=== PATIENT | female | born 1970 | race Caucasian/White ===

== ENCOUNTER 2018-01-03 14:51 | Emergency (ER) | payer SELFPAY, MEDICAID | END 2018-01-03 17:44 | disposition left against medical advice (07) | LOC: M ED 14:51 | DX: K13.79 Other lesions of oral mucosa (principal); Z53.21 Procedure and treatment not carried out due to patient leaving prior to being seen by health care provider ==

== ENCOUNTER 2018-09-25 17:28 | Inpatient (IN) | payer OTHER, SELFPAY ==
[2018-09-25] MEDS: MORPHINE 2 MG/ML 1ML SYRINGE (J2270) IV (18:45)
[2018-09-25] MEDS: PIPERACILLIN/TAZOBACTAM SOD 3.375 GM in D5W MINI-BAG PLUS 50 ML IV (20:10)
[2018-09-25 20:34] LABS: BASO # 0.1 10^3/uL (0.0-0.2); BASO % 0.4 % (0.0-1.0); EOS # 0.2 10^3/uL (0.0-0.50); EOS % 0.8 % (0.0-3.0); HEMATOCRIT 43.3 % (36.0-47.0); IMMATURE GRANULOCYTE % 0.8 % (0-3.0); LYMPH # 1.8 10^3/uL (1.5-4.5); LYMPH % 9.3 % (24.0-44.0); MEAN CORPUSCULAR HEMOGLOBIN 30.2 pg (27.0-33.0); MEAN CORPUSCULAR HGB CONC 32.3 g/dl (32.0-36.5); MEAN CORPUSCULAR VOLUME 93.3 fl (80.0-96.0); MONO # 1.6 10^3/uL (0.0-0.8); MONO % 8.3 % (0.0-5.0); NEUTROPHILS # 15.6 10^3/uL (1.8-7.7); NEUTROPHILS % 80.4 % (36.0-66.0); PLATELET COUNT, AUTOMATED 339 10^3/uL (150-450); RED BLOOD COUNT 4.64 10^6/uL (4.00-5.40); RED CELL DISTRIBUTION WIDTH 13.2 % (11.5-14.5); WHITE BLOOD COUNT 19.4 10^3/uL (4.0-10.0)
[2018-09-25 20:52] LABS: ERYTHROCYTE SEDIMENTATION RATE 39 mm/hr (0-20)
[2018-09-25 20:54] LABS: ANION GAP 8 MEQ/L (8-16); BLOOD UREA NITROGEN 13 MG/DL (7-18); C REACTIVE PROTEIN QUANTITATIV 8.94 MG/DL (0.00-0.30); CALCIUM LEVEL 8.7 MG/DL (8.5-10.1); CARBON DIOXIDE LEVEL 28 MEQ/L (21-32); CHLORIDE LEVEL 99 MEQ/L (98-107); CREATININE FOR GFR 0.64 MG/DL (0.55-1.30); GLOMERULAR FILTRATION RATE > 60.0 (>58); GLUCOSE, FASTING 75 MG/DL (70-100); POTASSIUM SERUM 3.9 MEQ/L (3.5-5.1); SODIUM LEVEL 135 MEQ/L (136-145)
[2018-09-25] MEDS: VANCOMYCIN HCL 1,000 MG, VIAL MATE ADAPTER 1 EACH in D5W 250 ML IV (22:03)
[2018-09-25] MEDS ORDERED: ISOVUE-370 76% 100ML VIAL (Q9967) As Ordered (22:22)
[2018-09-26] MEDS: PERCOCET 5MG/325MG TAB PO ×5 (00:44→22:09)
[2018-09-26] MEDS: VANCOMYCIN HCL 1,000 MG, VIAL MATE ADAPTER 1 EACH in D5W 250 ML IV ×2 (02:26→10:26)
[2018-09-26] MEDS: PIPERACILLIN/TAZOBACTAM SOD 3.375 GM in D5W MINI-BAG PLUS 50 ML IV ×2 (03:20→12:09)
[2018-09-26] MEDS: ACETAMINOPHEN TAB 650MG DOSE (2X325MG) PO (03:27)
[2018-09-26] MEDS: ENOXAPARIN 40 MG/0.4 ML SYRINGE (J1650) SC (09:00)
[2018-09-26 09:09] LABS: AMPHETAMINES LEVEL URINE NEGATIVE (NEGATIVE); BARBITURATES URINE NEGATIVE (NEGATIVE); BENZODIAZEPINES URINE NEGATIVE (NEGATIVE); CANNABINOIDS URINE NEGATIVE (NEGATIVE); COCAINE METABOLITE URINE NEGATIVE (NEGATIVE); METHADONE URINE NEGATIVE (NEGATIVE); OPIATES URINE POSITIVE (NEGATIVE); PHENCYCLIDINE URINE NEGATIVE (NEGATIVE)
[2018-09-26] MEDS: NS 1,000 ML IV ×2 (10:26→17:58)
[2018-09-26 14:15] LABS: BASO # 0.1 10^3/uL (0.0-0.2); BASO % 0.5 % (0.0-1.0); EOS # 0.5 10^3/uL (0.0-0.50); EOS % 3.7 % (0.0-3.0); HEMATOCRIT 37.7 % (36.0-47.0); HEMOGLOBIN 12.5 g/dl (12.0-15.5); IMMATURE GRANULOCYTE % 0.4 % (0-3.0); LYMPH # 1.5 10^3/uL (1.5-4.5); LYMPH % 10.5 % (24.0-44.0); MEAN CORPUSCULAR HEMOGLOBIN 30.3 pg (27.0-33.0); MEAN CORPUSCULAR HGB CONC 33.2 g/dl (32.0-36.5); MEAN CORPUSCULAR VOLUME 91.5 fl (80.0-96.0); MONO # 1.2 10^3/uL (0.0-0.8); MONO % 8.5 % (0.0-5.0); NEUTROPHILS # 10.7 10^3/uL (1.8-7.7); NEUTROPHILS % 76.4 % (36.0-66.0); PLATELET COUNT, AUTOMATED 324 10^3/uL (150-450); RED BLOOD COUNT 4.12 10^6/uL (4.00-5.40); RED CELL DISTRIBUTION WIDTH 13.2 % (11.5-14.5)
[2018-09-26 14:35] LABS: BLOOD UREA NITROGEN 8 MG/DL (7-18); CARBON DIOXIDE LEVEL 27 MEQ/L (21-32); CHLORIDE LEVEL 104 MEQ/L (98-107); CREATININE FOR GFR 0.64 MG/DL (0.55-1.30); GLOMERULAR FILTRATION RATE > 60.0 (>58); GLUCOSE, FASTING 167 MG/DL (70-100); POTASSIUM SERUM 3.5 MEQ/L (3.5-5.1); SODIUM LEVEL 138 MEQ/L (136-145)
[2018-09-26 14:36] LABS: ANION GAP 7 MEQ/L (8-16); CALCIUM LEVEL 8.2 MG/DL (8.5-10.1)
[2018-09-26 14:38] LABS: LACTIC ACID SEPSIS PROTOCOL 1.7 MMOL/L (0.4-2.0)
[2018-09-26] MEDS: CEFTAROLINE FOSAMIL 600 MG in D5W MINI-BAG PLUS 50 ML IV (17:58)
[2018-09-27] MEDS: PERCOCET 5MG/325MG TAB PO ×2 (02:54→07:18)
[2018-09-27 03:18] LABS: KETONE, URINE AUTO RFX NEGATIVE (NEGATIVE); LEUKOCYTE ESTERASE UR AUTO RFX NEGATIVE (NEGATIVE); MUCUS, URINE RFX SMALL (NEGATIVE); NITRITE, URINE AUTO RFX NEGATIVE (NEGATIVE); RBC, URINE AUTO RFX 7 /HPF (0-3); SQUAM EPITHELIAL CELL UR AURFX 1 /HPF (0-6); WBC, URINE AUTO RFX 7 /HPF (0-3)
[2018-09-27] MEDS: CEFTAROLINE FOSAMIL 600 MG in D5W MINI-BAG PLUS 50 ML IV (03:59)
[2018-09-27] MEDS: NS 1,000 ML IV (06:30)
[2018-09-27] MEDS: ENOXAPARIN 40 MG/0.4 ML SYRINGE (J1650) SC (09:00)
[2018-09-27 09:09] LABS: BASO # 0.1 10^3/uL (0.0-0.2); BASO % 0.7 % (0.0-1.0); EOS # 0.4 10^3/uL (0.0-0.50); EOS % 3.5 % (0.0-3.0); HEMATOCRIT 37.9 % (36.0-47.0); HEMOGLOBIN 12.3 g/dl (12.0-15.5); IMMATURE GRANULOCYTE % 0.5 % (0-3.0); LYMPH # 1.5 10^3/uL (1.5-4.5); LYMPH % 14.3 % (24.0-44.0); MEAN CORPUSCULAR HEMOGLOBIN 30.3 pg (27.0-33.0); MEAN CORPUSCULAR HGB CONC 32.5 g/dl (32.0-36.5); MEAN CORPUSCULAR VOLUME 93.3 fl (80.0-96.0); MONO # 0.7 10^3/uL (0.0-0.8); MONO % 6.5 % (0.0-5.0); NEUTROPHILS # 7.5 10^3/uL (1.8-7.7); NEUTROPHILS % 74.5 % (36.0-66.0); PLATELET COUNT, AUTOMATED 318 10^3/uL (150-450); RED BLOOD COUNT 4.06 10^6/uL (4.00-5.40); RED CELL DISTRIBUTION WIDTH 13.2 % (11.5-14.5); WHITE BLOOD COUNT 10.1 10^3/uL (4.0-10.0)
[2018-09-27 09:23] LABS: C REACTIVE PROTEIN QUANTITATIV 3.69 MG/DL (0.00-0.30)
[2018-09-27 09:28] LABS: ALBUMIN 2.4 GM/DL (3.2-5.2); ALBUMIN/GLOBULIN RATIO 0.67 (1.00-1.93); ALKALINE PHOSPHATASE 85 U/L (45-117); ALT/SGPT 115 U/L (12-78); ANION GAP 6 MEQ/L (8-16); AST/SGOT 89 U/L (7-37); BILIRUBIN,TOTAL 0.3 MG/DL (0.2-1.0); BLOOD UREA NITROGEN 8 MG/DL (7-18); CALCIUM LEVEL 8.1 MG/DL (8.5-10.1); CARBON DIOXIDE LEVEL 25 MEQ/L (21-32); CHLORIDE LEVEL 109 MEQ/L (98-107); CREATININE FOR GFR 0.44 MG/DL (0.55-1.30); GLOMERULAR FILTRATION RATE > 60.0 (>58); GLUCOSE, FASTING 99 MG/DL (70-100); MAGNESIUM LEVEL 1.9 MG/DL (1.8-2.4); POTASSIUM SERUM 3.9 MEQ/L (3.5-5.1); SODIUM LEVEL 140 MEQ/L (136-145)
== END 2018-09-27 11:55 | disposition home or self-care (01) | DRG 383 ==
LOC: M MS4PR 09-26 01:10 → M ED 17:28 → M ED INP 22:03
DX: L03.113 Cellulitis of right upper limb (principal); F17.210 Nicotine dependence, cigarettes, uncomplicated; Z88.2 Allergy status to sulfonamides

== ENCOUNTER 2018-09-30 20:19 | Emergency (ER) | payer OTHER ==
[2018-09-30] MEDS: LIDOCAINE W/EPINEPHRINE 1% 20ML VIAL SC (21:28)
== END 2018-09-30 22:01 | disposition home or self-care (01) ==
LOC: M ED 20:19
DX: L02.413 Cutaneous abscess of right upper limb (principal); F41.9 Anxiety disorder, unspecified; F32.9 Major depressive disorder, single episode, unspecified; R51 Headache; F17.200 Nicotine dependence, unspecified, uncomplicated; Z88.2 Allergy status to sulfonamides; Z79.2 Long term (current) use of antibiotics; Z79.899 Other long term (current) drug therapy
CPT/HCPCS: 87186

== ENCOUNTER 2019-06-03 11:19 | Emergency (ER) | payer OTHER ==
[~2019-06-03] VITALS: Ht 160 cm; Wt 61.4 kg
[~2019-06-03 11:19] MED LIST: ACET-683 PO; ALEV220T26 PO; BIOT10009 PO; CEFD1CAP8 PO; DOXY-350 PO; IBUP-1114 PO; IBUP200T45 PO; IBUPOTC PO; LINE1TAB PO; NEOSOIN2 TOP; TYLE500T78 PO; VITA400C7 PO; ZOFR4TAB14 SL
[2019-06-03 12:47] LABS: BASO # 0.1 10^3/uL (0.0-0.2); BASO % 0.7 % (0.0-1.0); EOS # 0.1 10^3/uL (0.0-0.50); HEMATOCRIT 39.3 % (36.0-47.0); HEMOGLOBIN 12.6 g/dl (12.0-15.5); LYMPH # 2.6 10^3/uL (1.5-4.5); LYMPH % 25.4 % (24.0-44.0); MEAN CORPUSCULAR HEMOGLOBIN 29.5 pg (27.0-33.0); MEAN CORPUSCULAR HGB CONC 32.1 g/dl (32.0-36.5); MONO # 0.9 10^3/uL (0.0-0.8); MONO % 9.1 % (0.0-5.0); NEUTROPHILS # 6.5 10^3/uL (1.8-7.7); NEUTROPHILS % 63.4 % (36.0-66.0); PLATELET COUNT, AUTOMATED 306 10^3/uL (150-450); RED BLOOD COUNT 4.27 10^6/uL (4.00-5.40); WHITE BLOOD COUNT 10.3 10^3/uL (4.0-10.0)
[2019-06-03] MEDS ORDERED: NS 1,000 ML IV ONE (13:00)
[2019-06-03 13:04] LABS: ALBUMIN 3.2 GM/DL (3.2-5.2); ALT/SGPT 26 U/L (12-78); BILIRUBIN,TOTAL 0.2 MG/DL (0.2-1.0); BLOOD UREA NITROGEN 12 MG/DL (7-18); C REACTIVE PROTEIN QUANTITATIV 1.76 MG/DL (0.00-0.30); CALCIUM LEVEL 8.7 MG/DL (8.5-10.1); CARBON DIOXIDE LEVEL 26 MEQ/L (21-32); CHLORIDE LEVEL 105 MEQ/L (98-107); CREATININE FOR GFR 0.52 MG/DL (0.55-1.30); ETHYL ALCOHOL (ETHANOL) < 0.003 % (0.000-0.010); GLOMERULAR FILTRATION RATE > 60.0 (>51); GLUCOSE, FASTING 98 MG/DL (70-100); POTASSIUM SERUM 3.8 MEQ/L (3.5-5.1); SODIUM LEVEL 136 MEQ/L (136-145); TOTAL PROTEIN 7.2 GM/DL (6.4-8.2)
[2019-06-03 13:24] LABS: ERYTHROCYTE SEDIMENTATION RATE 35 mm/hr (0-30)
[2019-06-03 13:29] LABS: AMPHETAMINES LEVEL URINE NEGATIVE (NEGATIVE); BARBITURATES URINE NEGATIVE (NEGATIVE); BENZODIAZEPINES URINE NEGATIVE (NEGATIVE); CANNABINOIDS URINE POSITIVE (NEGATIVE); COCAINE METABOLITE URINE POSITIVE (NEGATIVE); METHADONE URINE NEGATIVE (NEGATIVE); OPIATES URINE POSITIVE (NEGATIVE); PHENCYCLIDINE URINE NEGATIVE (NEGATIVE)
[2019-06-03] MEDS ORDERED: DOXYCYCLINE HYCLATE 100 MG in D5W MINI-BAG PLUS 100 ML IV ONE (14:00)
[2019-06-03] MEDS ORDERED: KETOROLAC 30 MG/ML VIAL (J1885) IV ONE (14:00)
--- NOTE | 2019-06-03 14:40 | REP ---
REASON: Pain and swelling. PRIORS: None. Multiple ultrasonographic image over the region of interest of pain and swelling medial right clavicle shows a complex mixed echo predominantly hypoechoic structure measuring 4.3 x 2.3 x 3.7 cm. Doppler shows increased blood flow within and surrounding that area. IMPRESSION: Mixed echo area of edema and swelling as described above consistent with inflammation/infectious etiology. The exact etiology is uncertain. This needs to be correlated clinically with appropriate followup. There is no evidence of a discernible drainable abscess at this time. Electronically Signed by Jaycob Moreira DO 06/03/2019 04:20 P
[2019-06-03] MEDS ORDERED: DOXY-350 PO (14:49)
[2019-06-03] MEDS ORDERED: KETO10TAB PO (14:49)
[2019-06-03 14:57] VITALS: BP 109/52
== END 2019-06-03 15:33 | disposition home or self-care (01) ==
LOC: M ED 11:19
DX: L03.113 Cellulitis of right upper limb (principal); Z86.14 Personal history of Methicillin resistant Staphylococcus aureus infection; Z72.0 Tobacco use; F12.10 Cannabis abuse, uncomplicated; F19.10 Other psychoactive substance abuse, uncomplicated; Z88.2 Allergy status to sulfonamides
CPT/HCPCS: 76882; 80053; 80307; 83605; 85025; 85652; 86140; 87040; 96374; 96375; 99284; G0480; J1885

== ENCOUNTER 2019-06-04 14:09 | Emergency (ER) | payer OTHER ==
[~2019-06-04] VITALS: Ht 160 cm; Wt 63.5 kg
[~2019-06-04 14:09] MED LIST changes: +KETO10TAB PO
[2019-06-04 15:58] LABS: HEMATOCRIT 38.7 % (36.0-47.0); HEMOGLOBIN 12.3 g/dl (12.0-15.5); MEAN CORPUSCULAR HEMOGLOBIN 29.1 pg (27.0-33.0); MEAN CORPUSCULAR HGB CONC 31.8 g/dl (32.0-36.5); MEAN CORPUSCULAR VOLUME 91.5 fl (80.0-96.0); PLATELET COUNT, AUTOMATED 336 10^3/uL (150-450); RED BLOOD COUNT 4.23 10^6/uL (4.00-5.40); WHITE BLOOD COUNT 7.9 10^3/uL (4.0-10.0)
[2019-06-04] MEDS ORDERED: LIDOCAINE W/EPINEPHRINE 1% 20ML VIAL SC ONE (16:00)
[2019-06-04 16:29] LABS: ERYTHROCYTE SEDIMENTATION RATE 35 mm/hr (0-30)
[2019-06-04] MEDS ORDERED: DOXYCYCLINE HYCLATE 100 MG in D5W MINI-BAG PLUS 100 ML IV ONE (16:30)
[2019-06-04 18:00] VITALS: BP 124/62
== END 2019-06-04 18:03 | disposition home or self-care (01) ==
LOC: M ED 14:09
DX: L02.413 Cutaneous abscess of right upper limb (principal); Z86.14 Personal history of Methicillin resistant Staphylococcus aureus infection; Z79.2 Long term (current) use of antibiotics; F17.200 Nicotine dependence, unspecified, uncomplicated; Z88.2 Allergy status to sulfonamides

== ENCOUNTER 2021-12-13 15:05 | Emergency (ER) | payer OTHER ==
[~2021-12-13] VITALS: Ht 160 cm; Wt 74.3 kg
[~2021-12-13 15:05] MED LIST changes: -CEFD1CAP8 PO; +CEFD300C41 PO; -IBUP200T45 PO; +IBUP200T46 PO
[2021-12-13] MEDS ORDERED: IBUP80TA (15:34)
[2021-12-13] MEDS ORDERED: NEOM1SUS13 (15:34)
[2021-12-13] MEDS ORDERED: AZIT-12 (15:34)
[2021-12-13] MEDS ORDERED: ACETAMINOPHEN 500 MG TAB PO ONE (17:00)
[2021-12-13] MEDS ORDERED: CIPR7.5D5 OTIC (18:10)
[2021-12-13] MEDS ORDERED: DOXY-443 PO (18:10)
[2021-12-13] MEDS ORDERED: CIPRODEX OTIC SUSP 7.5ML AD SCH (18:15)
[2021-12-13] MEDS ORDERED: DOXYCYCLINE HYCLATE 100MG TABLET PO ONE (18:15)
[2021-12-13 19:31] VITALS: BP 121/73
== END 2021-12-13 19:42 | disposition home or self-care (01) ==
LOC: M ED 15:05
DX: H60.11 Cellulitis of right external ear (principal); Z88.2 Allergy status to sulfonamides; F17.210 Nicotine dependence, cigarettes, uncomplicated

== ENCOUNTER 2022-03-27 00:38 | Inpatient (IN) | payer OTHER ==
[~2022-03-27] VITALS: Ht 160 cm; Wt 68.2 kg
[~2022-03-27 00:38] MED LIST changes: +AZIT-12; +CIPR7.5D5 OTIC; +DOXY-443 PO; +IBUP80TA; +NEOM1SUS13
[2022-03-27] MEDS ORDERED: MORPHINE 4 MG/ML 1ML VIAL/SYRINGE IV ONE (04:35)
[2022-03-27 04:58] LABS: BASO # 0.1 10^3/uL (0.0-0.2); BASO % 0.4 % (0.0-1.0); EOS # 0.1 10^3/uL (0.0-0.5); EOS % 0.4 % (0.0-3.0); HEMATOCRIT 41.5 % (36.0-47.0); HEMOGLOBIN 13.7 g/dl (12.0-15.5); MEAN CORPUSCULAR HEMOGLOBIN 30.6 pg (27.0-33.0); MEAN CORPUSCULAR VOLUME 92.6 fl (80.0-96.0); MONO % 6.3 % (2.0-8.0); NEUTROPHILS # 13.3 10^3/uL (1.5-8.5); NEUTROPHILS % 80.4 % (36.0-66.0); PLATELET COUNT, AUTOMATED 314 10^3/uL (150-450); RED BLOOD COUNT 4.48 10^6/uL (4.00-5.40); WHITE BLOOD COUNT 16.5 10^3/uL (4.0-10.0)
[2022-03-27 05:18] LABS: C REACTIVE PROTEIN QUANTITATIV 4.17 MG/DL (0.00-0.30)
[2022-03-27] MEDS ORDERED: ISOVUE-370 76% 100ML VIAL As Ordered ONE (05:22)
[2022-03-27] MEDS ORDERED: ONDANSETRON 4MG/2ML VIAL IV ONE (05:35)
[2022-03-27 05:37] LABS: HCG, SERUM QUALITATIVE NEGATIVE (NEGATIVE)
[2022-03-27] MEDS ORDERED: AMPICILLIN SOD/SULBACTAM SOD 3 GM in D5W MINI-BAG PLUS 100 ML IV ONE (06:35)
[2022-03-27 06:57] LABS: RSV AMPLIFICATION NEGATIVE (NEGATIVE)
[2022-03-27] MEDS ORDERED: KETOROLAC 30 MG/ML 1ML VIAL IV ONE (08:00)
[2022-03-27] MEDS ORDERED: MORPHINE 2 MG/ML 1ML VIAL IV PRN (09:20)
[2022-03-27] MEDS: NS 1,000 ML IV SCH ×2 (10:06→19:20)
[2022-03-27] MEDS: MORPHINE 4 MG/ML 1ML VIAL/SYRINGE IV PRN ×2 (10:18→16:26)
[2022-03-27 10:32] LABS: ALBUMIN 3.4 GM/DL (3.2-5.2); ALT/SGPT 22 U/L (12-78); BILIRUBIN,TOTAL 0.5 MG/DL (0.2-1.0); BLOOD UREA NITROGEN 12 MG/DL (7-18); CALCIUM LEVEL 9.7 MG/DL (8.5-10.1); CARBON DIOXIDE LEVEL 25 MEQ/L (21-32); CHLORIDE LEVEL 105 MEQ/L (98-107); CREATININE FOR GFR 0.49 MG/DL (0.55-1.30); GLOMERULAR FILTRATION RATE > 60.0 (>51); GLUCOSE, FASTING 94 MG/DL (70-100); POTASSIUM SERUM 3.8 MEQ/L (3.5-5.1); SODIUM LEVEL 140 MEQ/L (136-145); TOTAL PROTEIN 7.6 GM/DL (6.4-8.2)
[2022-03-27 11:03] LABS: INR 0.9; PROTHROMBIN TIME 12.6 SECONDS (12.7-14.5)
[2022-03-27] MEDS ORDERED: HOME MED LIST COMPLETE! XX SCH (11:10)
[2022-03-27] MEDS ORDERED: AMPICILLIN SOD/SULBACTAM SOD 3 GM in D5W MINI-BAG PLUS 100 ML IV SCH (12:00)
[2022-03-27] MEDS ORDERED: NICOTINE 21MG/24HR 1 EA TRANSDERMAL TD ONE (13:00)
[2022-03-27] MEDS ORDERED: LIDOCAINE 1% MDV 20ML VIAL As Ordered ONE (15:42)
[2022-03-27] MEDS ORDERED: propofoL 200 MG/20 ML VIAL As Ordered ONE (15:52)
[2022-03-27] MEDS ORDERED: ROCURONIUM BROMIDE 50 MG/5 ML VIAL As Ordered ONE (15:52)
[2022-03-27] MEDS ORDERED: LIDOCAINE 2% 100MG/5ML SDV (FOR ANES.) As Ordered ONE (15:52)
[2022-03-27] MEDS ORDERED: MIDAZOLAM INJ 2MG/2ML VIAL (J2250 PER 1MG) As Ordered ONE (15:52)
[2022-03-27] MEDS ORDERED: fentaNYL 250 MCG/5 ML INJECTION As Ordered ONE (15:52)
[2022-03-27] MEDS ORDERED: OXYMETAZOLINE 0.05% NASAL SPRAY (AFRIN) As Ordered ONE (15:56)
[2022-03-27] MEDS ORDERED: VANCOMYCIN HCL 750 MG, VIAL MATE ADAPTER 1 EACH in NS 250 ML IV ONE ×2 (18:00→19:00)
[2022-03-27 18:10] VITALS: BP 119/72
[2022-03-27] MEDS: ONDANSETRON 4MG/2ML VIAL IV PRN (20:59)
[2022-03-27] MEDS ORDERED: PERCOCET 5MG/325MG TAB PO ONE (21:00)
[2022-03-27] MEDS ORDERED: MORPHINE 2 MG/ML 1ML VIAL IV ONE (21:00)
[2022-03-27 21:49] VITALS: BP 118/68
[2022-03-27 21:50] VITALS: BP 118/68
[2022-03-27] MEDS ORDERED: hydrOXYzine 25 MG TAB PO ONE (22:10)
[2022-03-27] MEDS: RAMELTEON 8 MG TAB (ROZEREM) PO PRN (22:23)
[2022-03-28] MEDS ORDERED: LORazepam 2 MG/ML VIAL IV ONE (01:00)
[2022-03-28] MEDS: ONDANSETRON 4MG/2ML VIAL IV PRN (01:19)
[2022-03-28] MEDS: VANCOMYCIN HCL 1,000 MG, VIAL MATE ADAPTER 1 EACH in NS 250 ML IV SCH ×2 (01:58→10:06)
[2022-03-28] MEDS: NS 1,000 ML IV SCH ×2 (04:58→16:19)
[2022-03-28] MEDS: SODIUM CHLORIDE 0.9% INJ 10 ML SYR IV SCH ×2 (04:58→18:02)
[2022-03-28] MEDS: MORPHINE 4 MG/ML 1ML VIAL/SYRINGE IV PRN ×4 (04:58→22:40)
[2022-03-28 06:00] VITALS: BP 122/61
[2022-03-28 06:30] LABS: HEMATOCRIT 36.3 % (36.0-47.0); MEAN CORPUSCULAR HEMOGLOBIN 30.3 pg (27.0-33.0); MEAN CORPUSCULAR HGB CONC 32.5 g/dl (32.0-36.5); MEAN CORPUSCULAR VOLUME 93.1 fl (80.0-96.0); PLATELET COUNT, AUTOMATED 298 10^3/uL (150-450); WHITE BLOOD COUNT 10.8 10^3/uL (4.0-10.0)
[2022-03-28 06:31] LABS: HEMOGLOBIN 11.8 g/dl (12.0-15.5)
[2022-03-28 06:51] LABS: ALBUMIN 2.6 GM/DL (3.2-5.2); ALT/SGPT 15 U/L (12-78); BILIRUBIN,TOTAL 0.3 MG/DL (0.2-1.0); BLOOD UREA NITROGEN 9 MG/DL (7-18); CALCIUM LEVEL 8.5 MG/DL (8.5-10.1); CARBON DIOXIDE LEVEL 27 MEQ/L (21-32); CHLORIDE LEVEL 110 MEQ/L (98-107); CREATININE FOR GFR 0.43 MG/DL (0.55-1.30); GLOMERULAR FILTRATION RATE > 60.0 (>51); GLUCOSE, FASTING 110 MG/DL (70-100); POTASSIUM SERUM 3.5 MEQ/L (3.5-5.1); SODIUM LEVEL 142 MEQ/L (136-145); TOTAL PROTEIN 5.6 GM/DL (6.4-8.2)
[2022-03-28 14:00] VITALS: BP_SYST 108; BP_SYST 124; BP_DIAS 68; BP_DIAS 70
[2022-03-28] MEDS: RAMELTEON 8 MG TAB (ROZEREM) PO PRN (21:35)
[2022-03-28] MEDS: VANCOMYCIN HCL 750 MG, VIAL MATE ADAPTER 1 EACH in NS 250 ML IV SCH (21:36)
[2022-03-28] MEDS: VANCOMYCIN HCL 500 MG in D5W MINI-BAG PLUS 100 ML IV SCH (22:41)
[2022-03-29] MEDS ORDERED: hydrOXYzine 50 MG TAB PO ONE
[2022-03-29] MEDS: SODIUM CHLORIDE 0.9% INJ 10 ML SYR IV PRN ×2 (00:30→12:37)
[2022-03-29] MEDS ORDERED: traZODone 50 MG TAB PO ONE (01:30)
[2022-03-29] MEDS: NS 1,000 ML IV SCH ×4 (01:36→23:06)
[2022-03-29] MEDS ORDERED: LORazepam 0.5 MG TAB PO ONE (03:00)
[2022-03-29 04:20] VITALS: BP 124/74
[2022-03-29] MEDS: VANCOMYCIN HCL 750 MG, VIAL MATE ADAPTER 1 EACH in NS 250 ML IV SCH (05:24)
[2022-03-29] MEDS ORDERED: ACETAMINOPHEN *IV* 1,000 MG in IV 1 EA IV ONE (05:50)
[2022-03-29] MEDS: SODIUM CHLORIDE 0.9% INJ 10 ML SYR IV SCH ×2 (06:00→17:36)
[2022-03-29] MEDS ORDERED: KETOROLAC 30 MG/ML 1ML VIAL IV ONE ×2 (06:00)
[2022-03-29] MEDS ORDERED: ACETAMINOPHEN TAB 650MG DOSE (2X325MG) PO PRN (06:00)
[2022-03-29] MEDS: VANCOMYCIN HCL 500 MG in D5W MINI-BAG PLUS 100 ML IV SCH (06:44)
[2022-03-29 10:06] LABS: HEMATOCRIT 37.9 % (36.0-47.0); HEMOGLOBIN 12.4 g/dl (12.0-15.5); MEAN CORPUSCULAR HEMOGLOBIN 30.3 pg (27.0-33.0); MEAN CORPUSCULAR HGB CONC 32.7 g/dl (32.0-36.5); MEAN CORPUSCULAR VOLUME 92.7 fl (80.0-96.0); PLATELET COUNT, AUTOMATED 296 10^3/uL (150-450); RED BLOOD COUNT 4.09 10^6/uL (4.00-5.40); WHITE BLOOD COUNT 7.2 10^3/uL (4.0-10.0)
[2022-03-29 10:43] LABS: ALBUMIN 2.6 GM/DL (3.2-5.2); ALT/SGPT 15 U/L (12-78); BILIRUBIN,TOTAL 0.2 MG/DL (0.2-1.0); BLOOD UREA NITROGEN 6 MG/DL (7-18); CALCIUM LEVEL 8.5 MG/DL (8.5-10.1); CARBON DIOXIDE LEVEL 27 MEQ/L (21-32); CHLORIDE LEVEL 112 MEQ/L (98-107); CREATININE FOR GFR 0.58 MG/DL (0.55-1.30); GLOMERULAR FILTRATION RATE > 60.0 (>51); GLUCOSE, FASTING 144 MG/DL (70-100); POTASSIUM SERUM 3.2 MEQ/L (3.5-5.1); SODIUM LEVEL 144 MEQ/L (136-145); TOTAL PROTEIN 6.1 GM/DL (6.4-8.2); VANCOMYCIN LEVEL TROUGH 19.1 UG/ML (10.0-20.0)
[2022-03-29 11:38] VITALS: BP 107/63
[2022-03-29] MEDS: VANCOMYCIN HCL 1,000 MG, VIAL MATE ADAPTER 1 EACH in NS 250 ML IV SCH ×2 (11:45→21:06)
[2022-03-29] MEDS: MORPHINE 4 MG/ML 1ML VIAL/SYRINGE IV PRN ×2 (12:37→18:23)
[2022-03-29 14:00] VITALS: BP 113/63
[2022-03-29] MEDS: ONDANSETRON 4MG/2ML VIAL IV PRN (18:25)
[2022-03-29 19:54] VITALS: BP 111/66
[2022-03-29 22:00] VITALS: BP 111/66
[2022-03-30] MEDS: MORPHINE 4 MG/ML 1ML VIAL/SYRINGE IV PRN ×2 (00:35→06:39)
[2022-03-30] MEDS ORDERED: hydrOXYzine 50 MG TAB PO ONE (03:45)
[2022-03-30] MEDS: VANCOMYCIN HCL 1,000 MG, VIAL MATE ADAPTER 1 EACH in NS 250 ML IV SCH (04:52)
[2022-03-30] MEDS: SODIUM CHLORIDE 0.9% INJ 10 ML SYR IV SCH (04:53)
[2022-03-30 05:12] VITALS: BP 121/69
[2022-03-30 07:49] LABS: HEMATOCRIT 35.7 % (36.0-47.0); HEMOGLOBIN 11.6 g/dl (12.0-15.5); MEAN CORPUSCULAR HEMOGLOBIN 30.2 pg (27.0-33.0); MEAN CORPUSCULAR HGB CONC 32.5 g/dl (32.0-36.5); PLATELET COUNT, AUTOMATED 277 10^3/uL (150-450); RED BLOOD COUNT 3.84 10^6/uL (4.00-5.40); WHITE BLOOD COUNT 8.8 10^3/uL (4.0-10.0)
[2022-03-30 08:11] LABS: ALBUMIN 2.5 GM/DL (3.2-5.2); ALT/SGPT 16 U/L (12-78); BILIRUBIN,TOTAL 0.2 MG/DL (0.2-1.0); BLOOD UREA NITROGEN 3 MG/DL (7-18); CALCIUM LEVEL 8.6 MG/DL (8.5-10.1); CARBON DIOXIDE LEVEL 26 MEQ/L (21-32); CHLORIDE LEVEL 112 MEQ/L (98-107); CREATININE FOR GFR 0.47 MG/DL (0.55-1.30); GLOMERULAR FILTRATION RATE > 60.0 (>51); GLUCOSE, FASTING 91 MG/DL (70-100); POTASSIUM SERUM 3.3 MEQ/L (3.5-5.1); SODIUM LEVEL 146 MEQ/L (136-145); TOTAL PROTEIN 5.7 GM/DL (6.4-8.2)
[2022-03-30] MEDS ORDERED: POTASSIUM CHLORIDE 10MEQ SR TABLET PO ONE (08:45)
[2022-03-30] MEDS: SODIUM CHLORIDE 0.9% INJ 10 ML SYR IV PRN (09:03)
[2022-03-30] MEDS ORDERED: ACET1TAB55 PO (11:46)
[2022-03-30] MEDS ORDERED: DOXY-350 PO (11:46)
[2022-03-30] MEDS ORDERED: PROB250C PO (11:47)
[2022-03-30 11:57] VITALS: BP 114/78
== END 2022-03-30 12:55 | disposition home or self-care (01) | DRG 383 ==
LOC: M ED 00:38 → M MSPAV 09:18 → M ED INP 09:18 → M MSPAV 18:19
PROVIDERS: ADMIT Internal Medicine; ATTEND Internal Medicine
PROC: 02HV33Z Insertion of Infusion Device into Superior Vena Cava, Percutaneous Approach (ICD-10-PCS; principal; 2022-03-27 15:30)
DX: L03.211 Cellulitis of face (principal); R00.1 Bradycardia, unspecified; F17.200 Nicotine dependence, unspecified, uncomplicated; K13.0 Diseases of lips; Z88.2 Allergy status to sulfonamides